=== PATIENT | male | born 1985 | race Caucasian/White ===

== ENCOUNTER → 2017-02-03 | Outpatient (CLI) | payer OTHER ==
[~2017-02-03] MED LIST: AMITRIPTYLINE H50 MG PO; COLCHICINE0.6 M1 PO; IBUPROFEN800 MG PO; NEURONTIN 400400 MG PO; SUBOXONE 8 MG-1 EACH SL; WELLBUTRIN XL150 M1 PO; ZOLOFT100 MG PO; ZYLOPRIM 100 M100 MG PO
== END ==
LOC: KOH-I 01-19 10:15
DX: M54.5 Low back pain (principal); F41.9 Anxiety disorder, unspecified; M51.36 Other intervertebral disc degeneration, lumbar region
CPT/HCPCS: 72148